=== PATIENT | female | born 1960 | race Caucasian/White ===

== ENCOUNTER 2016-12-01 01:40 | Emergency (ER) | payer MEDICARE ==
[2011-06-04 00:41] VITALS: BMI 25.0
[2016-12-01 02:14] LABS: HEMATOCRIT 47.8 % (36.0-48.0); LYMPHOCYTES 16.1 % (15-50); MCHC 35.6 g/dL (31.0-37.0); MCV 95.6 fL (80.0-100.0); MEAN PLATELET VOLUME 8.7 fL (7.4-10.4); NEUTROPHILS 80.1 % (40-80); WBC 10.9 10x3/uL (4.8-10.8)
[2016-12-01 02:16] LABS: PLATELET COUNT 428 10x3/uL (130-400)
[2016-12-01 02:26] LABS: ALBUMIN 3.5 g/dL (3.4-5.0); ALKALINE PHOSPHATASE 103 U/L (46-116); ALT (SGPT) 21 U/L (10-68); BILIRUBIN - TOTAL 0.28 mg/dL (0.2-1.3); CALC OSMOLALITY 260 mosm/kg (275-300); CALCIUM 9.1 mg/dL (8.5-10.1); CARBON DIOXIDE 31.9 mmol/L (21.0-32.0); CHLORIDE - SERUM 89 mmol/L (98-107); CREATININE - SERUM 0.7 mg/dL (0.6-1.3); GLUCOSE 100 mg/dL (74-106); PROTEIN - SERUM 7.6 g/dL (6.4-8.2); SODIUM 131 mmol/L (136-145); UREA NITROGEN 6 mg/dL (7-18); eGFR NON AFRICAN AMERICAN > 90 mL/min (90-120)
[2016-12-01 02:29] LABS: POTASSIUM - SERUM 2.7 mmol/L (3.5-5.1)
== END 2016-12-01 05:17 | disposition home or self-care (01) ==
LOC: D.ER 01:40
PROVIDERS: Emergency Medicine
DX: A08.4 Viral intestinal infection, unspecified (principal); E86.0 Dehydration; E87.6 Hypokalemia; F17.200 Nicotine dependence, unspecified, uncomplicated; M51.36 Other intervertebral disc degeneration, lumbar region; I10 Essential (primary) hypertension

== ENCOUNTER 2017-01-12 13:38 | Emergency (ER) | payer MEDICARE ==
[2011-06-04 00:41] VITALS: BMI 25.0
[2017-01-12 14:56] LABS: BASOPHILS 0.2 % (0.0-2.0); HEMATOCRIT 44.4 % (36.0-48.0); HEMOGLOBIN 15.1 g/dL (12-16); IMMATURE GRANULOCYTES 0.5 % (0-5); LYMPHOCYTES 23.2 % (15-50); MCH 34.5 pg (26.0-34.0); MCV 101.4 fL (80.0-100.0); MEAN PLATELET VOLUME 9.3 fL (7.4-10.4); MONOCYTES 6.9 % (2-11); NEUTROPHILS 64.2 % (40-80); PLATELET COUNT 380 10x3/uL (130-400); RBC 4.38 10x6/uL (4.00-5.40); RDW 13.2 % (11.5-14.5); WBC 13.7 10x3/uL (4.8-10.8)
[2017-01-12 15:10] LABS: ALBUMIN 3.4 g/dL (3.4-5.0); ALKALINE PHOSPHATASE 102 U/L (46-116); ALT (SGPT) 30 U/L (10-68); BILIRUBIN - TOTAL 0.14 mg/dL (0.2-1.3); CALC OSMOLALITY 274 mosm/kg (275-300); CALCIUM 8.7 mg/dL (8.5-10.1); CARBON DIOXIDE 28.6 mmol/L (21.0-32.0); CHLORIDE - SERUM 100 mmol/L (98-107); CREATININE - SERUM 0.7 mg/dL (0.6-1.3); GLUCOSE 125 mg/dL (74-106); POTASSIUM - SERUM 3.7 mmol/L (3.5-5.1); PROTEIN - SERUM 6.9 g/dL (6.4-8.2); SODIUM 138 mmol/L (136-145); UREA NITROGEN 7 mg/dL (7-18); eGFR NON AFRICAN AMERICAN > 90 mL/min (90-120)
== END 2017-01-12 20:35 | disposition home or self-care (01) ==
LOC: D.ER 13:38
PROVIDERS: Emergency Medicine
DX: G43.909 Migraine, unspecified, not intractable, without status migrainosus (principal); R11.0 Nausea; M51.36 Other intervertebral disc degeneration, lumbar region; I10 Essential (primary) hypertension; E87.6 Hypokalemia; F17.200 Nicotine dependence, unspecified, uncomplicated

== ENCOUNTER 2017-02-13 03:08 | Emergency (ER) | payer MEDICARE ==
[2011-06-04 00:41] VITALS: BMI 25.0
== END 2017-02-13 03:46 | disposition home or self-care (01) ==
LOC: D.ER 03:08
DX: R51 Headache (principal); F17.200 Nicotine dependence, unspecified, uncomplicated; M51.36 Other intervertebral disc degeneration, lumbar region; I10 Essential (primary) hypertension; E87.6 Hypokalemia

== ENCOUNTER 2017-06-15 23:24 | Emergency (ER) | payer MEDICARE ==
[2011-06-04 00:41] VITALS: BMI 25.0
[2017-06-16 00:11] LABS: APPEARANCE CLEAR (CLEAR); BILIRUBIN NEGATIVE (NEGATIVE); COLOR YELLOW (YELLOW); GLUCOSE NEGATIVE (NEGATIVE); KETONE NEGATIVE (NEGATIVE); LEUKOCYTE ESTERASE NEGATIVE (NEGATIVE); NITRITE NEGATIVE (NEGATIVE); PROTEIN NEGATIVE (NEGATIVE); UROBILINOGEN NORMAL (NORMAL)
== END 2017-06-16 00:23 | disposition home or self-care (01) ==
LOC: D.ER 23:24
PROVIDERS: Emergency Medicine
DX: M54.2 Cervicalgia (principal); G89.29 Other chronic pain; I10 Essential (primary) hypertension

== ENCOUNTER 2017-09-30 08:04 | Inpatient (IN) | payer MEDICARE ==
[~2017-09-30] VITALS: Ht 152.4 cm; Wt 77.3 kg
[2017-09-30 08:47] LABS: BASOPHILS 0.1 % (0-2); EOSINOPHILS 0.1 % (0-7); HEMATOCRIT 44.7 % (36.0-48.0); HEMOGLOBIN 16.2 g/dL (12-16); IMMATURE GRANULOCYTES 0.3 % (0-5); LYMPHOCYTES 12.4 % (15-50); MCH 35.5 pg (26.0-34.0); MCHC 36.2 g/dL (31.0-37.0); MEAN PLATELET VOLUME 8.8 fL (7.4-10.4); MONOCYTES 6.1 % (2-11); PLATELET COUNT 450 10x3/uL (130-400); RBC 4.56 10x6/uL (4.00-5.40); RDW 13.4 % (11.5-14.5); WBC 18.6 10x3/uL (4.8-10.8)
[2017-09-30 09:00] LABS: ALBUMIN 3.4 g/dL (3.4-5.0); ALKALINE PHOSPHATASE 157 U/L (46-116); ALT (SGPT) 11 U/L (10-68); BILIRUBIN - TOTAL 0.27 mg/dL (0.2-1.3); CALC OSMOLALITY 243 mosm/kg (275-300); CALCIUM 8.7 mg/dL (8.5-10.1); CARBON DIOXIDE 27.1 mmol/L (21.0-32.0); CREATININE - SERUM 0.8 mg/dL (0.6-1.3); GLUCOSE 156 mg/dL (74-106); PROTEIN - SERUM 7.6 g/dL (6.4-8.2); SODIUM 121 mmol/L (136-145); UREA NITROGEN 3 mg/dL (7-18); eGFR NON AFRICAN AMERICAN 78 mL/min (90-120)
[2017-09-30 09:04] LABS: CHLORIDE - SERUM 80 mmol/L (98-107); POTASSIUM - SERUM 2.7 mmol/L (3.5-5.1)
--- NOTE | 2017-09-30 11:50 | NUR ---
PT RECEIVED TO ROOM FROM ER. RR EVEN AND UNLABORED, PT IS ABLE TO AMBULATE SLOWLY TO BATHROOM. PT IS ALERT AND ORIENTED X4. WILL OBTAIN URINE SAMPLE. WILL COMPLETE HISTORY, ASSESSMENT AND MED REC. WILL CTM.
[2017-09-30] MEDS ORDERED: HYDROCODON-ACE1 EAC7 PO (11:55)
[2017-09-30] MEDS ORDERED: METOPROLOL TAR100 M1 PO (11:56)
[2017-09-30] MEDS ORDERED: XANAX2 MG PO (11:56)
[2017-09-30] MEDS ORDERED: CELEXA40 MG PO (11:57)
[2017-09-30] MEDS ORDERED: CATAPRES0.2 MG PO (11:59)
[2017-09-30] MEDS ORDERED: LISINOPRIL-HCTZ1 T13 PO (11:59)
[2017-09-30] MEDS ORDERED: DILANTIN100 MG PO ×2 (12:00→12:01)
[2017-09-30] MEDS ORDERED: ZYPREXA20 MG PO (12:01)
[2017-09-30] MEDS ORDERED: NEURONTIN800 MG PO (12:02)
[2017-09-30] MEDS ORDERED: PEPCID20 MG PO (12:02)
[2017-09-30] MEDS ORDERED: NORVASC5 MG PO (12:03)
[2017-09-30] MEDS ORDERED: AMBIEN10 MG PO (12:03)
[2017-09-30 12:15] VITALS: BP 155/101; Ht 152.4 cm; Wt 77.3 kg
--- NOTE | 2017-09-30 13:30 | NUR ---
PT VOMITED 300 MLS OF FRITZ COLORED EMESIS. WILL GIVE PRN ZOFRAN AND CTM.
[2017-09-30 14:06] LABS: APPEARANCE CLEAR (CLEAR); BILIRUBIN NEGATIVE (NEGATIVE); COLOR YELLOW (YELLOW); GLUCOSE NEGATIVE (NEGATIVE); KETONE NEGATIVE (NEGATIVE); NITRITE NEGATIVE (NEGATIVE); PROTEIN TRACE mg/dL (NEGATIVE); SPECIFIC GRAVITY 1.005 (1.005-1.020); UROBILINOGEN NORMAL (NORMAL)
--- NOTE | 2017-09-30 18:50 | NUR ---
PTS POTASSIUM HAS BEEN LOW SINCE ADMISSION TO FLOOR. PT IS ON E PROTOCOL. WILL GIVE 20 MEQ TO START PROTOCOL AND PASS ALONG IN SHIFT REPORT. RR EVEN AND UNLABORED, PT DENIES NEEDS AT THIS TIME. REPORTS A DECREASE IN N/V SINCE ZOFRAN DRIP STARTED. FAMILY AT BEDSIDE, WILL GIVE SHIFT REPORT ON PT CONDITION FOR THE DAY.
--- NOTE | 2017-09-30 19:09 | NUR ---
RECEIVED REPORT, WILL ASSUME CARE OF PT, PT DENIES ANY NEEDS AT THIS TIME, WILL CONTINUE PLAN OF CARE
[2017-09-30 20:13] LABS: CALCIUM 8.6 mg/dL (8.5-10.1); CARBON DIOXIDE 29.2 mmol/L (21.0-32.0); CHLORIDE - SERUM 93 mmol/L (98-107); CREATININE - SERUM 0.6 mg/dL (0.6-1.3); SODIUM 129 mmol/L (136-145); eGFR NON AFRICAN AMERICAN > 90 mL/min (90-120)
[2017-09-30 20:14] LABS: CALC OSMOLALITY 255 mosm/kg (275-300); GLUCOSE 93 mg/dL (74-106); POTASSIUM - SERUM 3.9 mmol/L (3.5-5.1); UREA NITROGEN 4 mg/dL (7-18)
[2017-09-30 21:22] VITALS: BP 154/87
--- NOTE | 2017-10-01 | NUR ---
PT RESTING WELL, NO CHANGES NOTED. ASSESSMENTS UNCHANGED. CALL LIGHT WITHIN REACH. WILL MONITOR.
[2017-10-01 01:32] VITALS: BP 142/87
[2017-10-01 04:27] VITALS: BP 134/95
[2017-10-01 06:43] LABS: BASOPHILS 0.1 % (0-2); EOSINOPHILS 0.6 % (0-7); HEMATOCRIT 39.9 % (36.0-48.0); HEMOGLOBIN 13.7 g/dL (12-16); IMMATURE GRANULOCYTES 0.2 % (0-5); LYMPHOCYTES 29.6 % (15-50); MCHC 34.3 g/dL (31.0-37.0); MEAN PLATELET VOLUME 8.8 fL (7.4-10.4); MONOCYTES 8.8 % (2-11); NEUTROPHILS 60.7 % (40-80); RBC 3.91 10x6/uL (4.00-5.40)
[2017-10-01 06:47] LABS: WBC 8.4 10x3/uL (4.8-10.8)
[2017-10-01 06:48] LABS: PLATELET COUNT 353 10x3/uL (130-400)
[2017-10-01 07:05] LABS: CALC OSMOLALITY 264 mosm/kg (275-300); CALCIUM 8.4 mg/dL (8.5-10.1); CARBON DIOXIDE 26.6 mmol/L (21.0-32.0); CHLORIDE - SERUM 99 mmol/L (98-107); CREATININE - SERUM 0.6 mg/dL (0.6-1.3); GLUCOSE 101 mg/dL (74-106); MAGNESIUM - SERUM 1.8 mg/dL (1.8-2.4); PHOSPHOROUS 3.5 mg/dL (2.5-4.9); POTASSIUM - SERUM 4.4 mmol/L (3.5-5.1); SODIUM 134 mmol/L (136-145); UREA NITROGEN 5 mg/dL (7-18); eGFR NON AFRICAN AMERICAN > 90 mL/min (90-120)
--- NOTE | 2017-10-01 07:15 | NUR ---
REPORT RECEIVED. RR EVEN AND UNLABORED. PT DENIES NEEDS AT THIS TIME. PT REPORTS FEELING "MUCH BETTER TODAY." ZOFRAN DRIP AT 4.7 AND NS WITH 40MEQ OF K AT 125 ML/HR. PTS K+ IS AT 4.4 CURRENTLY. WILL LET PHYSICIAN KNOW ABOUT K+ TRENDING UP. WILL CTM PT CONDITION.
--- NOTE | 2017-10-01 09:01 | NUR ---
SPOKE TO DR. CASTILLO REGARDING PT REQUEST PAIN MEDICINE. GAVE TELEPHONE ORDER TO CONTINUE NORCO 5-325 Q4 FROM HOME MED REC. ALSO ADDRESSED PTS POTASSIUM TRENDING UP. GAVE ORDER TO GIVE 20MEQ OF K+ IN 1000MLS NS AND D/C THE 40MEQ IN 1000 MLS NS AND DROP RATE TO 75MLS/HR. WILL GIVE AND CTM.
[2017-10-01 09:06] VITALS: BP 156/86
--- NOTE | 2017-10-01 11:13 | NUR ---
PT WAS ASLEEP, EASY TO AROUSE. REASSED PTS PAIN TO WHICH SHE SAID A 05/15. I ASKED IF HER THE NORCO HELPED TO WHICH SHE SAID "I JUST TOOK IT." I EXPLAINED TO HER THAT IT HAD BEEN LONG ENOUGH FOR THE MEDICAITON TO HAVE TAKEN EFFECT. AFTER I SAID THIS SHE REPORTS THAT HER PAIN HAS DECREAED. WILL CTM.
[2017-10-01 12:00] VITALS: BP 115/78
[2017-10-01] MEDS ORDERED: ZOFRAN4 MG PO (15:02)
[2017-10-01 16:00] VITALS: BP 89/55
--- NOTE | 2017-10-01 16:50 | NUR ---
PTS BP WAS LOW AT 1600 PER RELINER REPORT AND DOCUMENTATION. RECHECKED PTS BP, NOW 140/72. PT IS ALERT AND ORIENTED, RELINER SAID THAT WHEN SHE CHECKED HER BP AT 1600, SHE WAS SLEEPING. SPOKE TO CECILIA ERVIN RENAL POLYGRAPH TECHNICIAN ABOUT PT CONDITION AND DISCHARGE PER DR. CASTILLO. GAVE TELEHPONE ORDER TO D/C PT LONG HER LABS HAD IMPROVED. REPORTED LABS TO POLYGRAPH TECHNICIAN, GAVE ORDER TO D/C. WILL TELL MANAGER ASSET ABOUT D/C AND COMPLETE D/C AFTER PAPERWORK IS COMPLETED.
--- NOTE | 2017-10-01 17:45 | NUR ---
PT DISCHARGED. D/C INSTRUCTIONS PROVIDED TO PT, VERBALIZED UNDERSTANDING. TELE REMOVED AND RETURNED TO TILE AND MARBLE INSTALLER. IV CATHETER REMOVED WITH TIP INTACT, DRESSING APPLIED. PAPERWORK SIGNED. PT DENIES FURTHER QUESTIONS AND NEEDS. WILL TAKE PT OUT VIA WHEELCHAIR. WILL BE GOING HOME WITH CLOSE FRIEND IN PERSONAL VEHICHLE.
== END 2017-10-01 18:04 | disposition home or self-care (01) | DRG 392 ==
LOC: D.ER 08:04 → D.M2 09:57
PROVIDERS: Family Medicine; Internal Medicine Nephrology; ADMIT Family Medicine Adult Medicine
DX: K52.9 Noninfective gastroenteritis and colitis, unspecified (principal); E87.1 Hypo-osmolality and hyponatremia; E87.6 Hypokalemia; I10 Essential (primary) hypertension; F41.9 Anxiety disorder, unspecified; F31.9 Bipolar disorder, unspecified; Z72.0 Tobacco use

== ENCOUNTER 2019-02-05 12:26 | Observation (INO) | payer MEDICARE ==
[~2019-02-05] VITALS: Ht 152.4 cm; Wt 81.5 kg
--- NOTE | ~2019-02-05 | CN ---
PATIENT NAME:ADE GAUTAM MEDICAL RECORD: [id number] : 62 LOCATION:D. D.2111 ADMIT DATE: 02/05/19 ACCOUNT: [id number] CONSULTING PHYSICIAN: ROMAINE JOYNER MD REFERRING PHYSICIAN: SHELTON CABALLERO MD DATE OF CONSULTATION: 02/06/2019 Cardiology Consultation ADMITTING DIAGNOSES: 1. Angina. 2. Abnormal electrocardiogram. 3. Hypertension. 4. Tachycardia. 5. History of supraventricular tachycardia, status post ablation. HISTORY OF PRESENT ILLNESS: Mrs. Gautam presents with 3-day history of chest discomfort. Her EKG has ST-T changes compatible with ischemia. She has continued to have the episodes of chest discomfort. She does have out of control hypertension. She is supposed to be on multiple agents including Norvasc and clonidine. However, she is only taking Norvasc on an intermittent basis. She is quite tachycardic and has a history of SVT, has had no recurrent SVT, but has had palpitations. She is not on a beta leann. PHYSICAL EXAMINATION: GENERAL APPEARANCE: Well-nourished, well-developed, appears stated age. Level of distress, comfortable. PSYCHIATRIC: Mental status, alert, normal affect. Orientation, oriented to time, place and person. EYES: Lids and conjunctiva, noninjected. No discharge, no pallor. ENT: Lips, teeth, gums, normal dentition. Oropharynx, no cyanosis, no pallor. NECK: Carotid arteries, bilateral normal upstroke, no bruits, no thrills. JUGULAR VEINS: No jugular venous pressure or distention. CERVICAL LYMPH NODES: Nontender, nonenlarged. THYROID: Not enlarged. Nontender. No nodules. LUNGS: Respiratory effort, unlabored. CHEST: Normal curvature. No thoracic deformity. No chest wall tenderness. Percussion, resonant. Auscultation, clear. No wheezes, no rales, no rhonchi. CARDIOVASCULAR: Precordial exam, nondisplaced. No heaves or pericardial thrills. Rate and rhythm, regular. Heart sounds, normal S1, normal S2. No S3, no gallop, no rub. Systolic murmur, not heard. Diastolic murmur, not heard. EXTREMITIES: No cyanosis, no edema. Peripheral pulses, full and equal in all extremities, except as noted. No bruits appreciated. ABDOMEN: Soft, nondistended. Normal aorta. No bruit. Nontender. No masses. Liver, nontender, no hepatomegaly. Spleen, nontender, no splenomegaly. MUSCULOSKELETAL: No joint tenderness. No joint swelling. No erythema. NEUROLOGICAL: Normal gait, normal strength, normal tone. SKIN: Warm and dry. IMPRESSION: Out of control hypertension with tachycardia. We will start Lopressor 100 mg b.i.d. We will get an echocardiogram and due to the chest pain with abnormal ECG compatible with ischemia, we will proceed with coronary angiography. Further care depends upon findings of the angiography. TRANSINT:[id number] Voice Confirmation ID: [id number] DOCUMENT ID: [id number] CONSULT REPORT [id number] ADE GAUTAM JEFFREY MD CC: [id number] DICTATION DATE: 02/06/19826 CONCRETE STONE FINISHING SUPERVISOR: 02/06/[address] [facility] [address] [place] [address]
--- NOTE | ~2019-02-05 | OP ---
PATIENT NAME: ADE GAUTAM MEDICAL RECORD: [id number] :62 LOCATION:D.M2 D.2111 ADMISSION DATE:02/05/19 SURGEON: ROMAINE JOYNER MD DATE OF OPERATION: 02/06/2019 DATE OF SERVICE: 02/06/2019 PROCEDURES: 1. Left heart catheterization. 2. Selective coronary angiography. 3. Left ventriculogram. 4. Bilateral selective renal angiography. INDICATION: Angina, coronary artery disease, out of control hypertension. PROCEDURE IN DETAIL: After informed consent was obtained and after a detailed description of risks, benefits as well as alternative therapies, the patient elected to proceed with angiogram and heart catheterization. The right femoral area was prepped and draped in normal sterile fashion. Right femoral artery was cannulated via modified Seldinger technique with placement of 5-Vietnamese sheath. All catheters exchanged through this sheath. FINDINGS: Left ventriculogram was performed in standard 30-degree JENNINGS view, reveals good cardiac wall motion throughout all segments. Overall ejection fraction estimated at 60%. SELECTIVE CORONARY ANGIOGRAPHY: The left main, left anterior descending, left circumflex, right coronary artery are all smooth-walled vessels with no angiographic evidence of coronary artery disease. There was subselection of each renal artery. RIGHT RENAL ARTERY: The right renal artery is solitary artery off the aorta with no significant pressure damping at the ostium. No significant renal artery stenosis. LEFT RENAL ARTERY: The left renal artery is solitary artery off the aorta with no significant pressure damping. No significant renal artery stenosis. OVERALL IMPRESSION: No coronary artery disease is present. Normal left ventricular function. No renal artery disease is present. Center medical management on treatment of essential hypertension. TRANSINT:[id number] Voice Confirmation ID: [id number] DOCUMENT ID: [id number] ROMAINE JOYNER MD CC: SHELTON CABALLERO [id number] DICTATION DATE: 02/06/19 1106 LAUNDERER HAND: 02/06/19 1215 ADM IN [facility] [address] [place] [address]
--- NOTE | ~2019-02-05 | HEMODYNAMI ---
PATIENT:ADE GAUTAM MEDICAL RECORD: [id number] : 62 [facility] ADMISSION DATE: 02/05/19 Generatedon:02/06/201911:07 Patient name: ADE GAUTAM Patient #: [id number] SSN: : 1960 Date of study: 02/06/2019 Page: Of Hemodynamic Procedure Report Patient Data Patient Demographics Procedure consent was obtained First Name: ADE Gender: Female Last Name: DAIN : 1960 [facility] Initial: MARK Age: 58 year(s) Patient #: [id number] Race: Unknown Additional ID: [id number] Contact details [address]: [address] [place] [address] [address] State: [place] City: [place] Zip code: [address] Past Medical History Allergies Allergen Reaction Date Comments Reported Sulfa drugs 02/06/2019 Other allergy 02/06/2019 lamictal, maxalt, imitrex Admission Admission Data Admission Date: 02/05/2019 Admission Time: 20:18 Room #: D.2111 Procedure Procedure Types Cath Procedure Diagnostic Procedure [facility] w/Coronaries Peripheral Cath Diagnostic Procedure Program Services Assistant Peripheral Procedures Renal Arteriogram Procedure Description Procedure Date Procedure Date: 02/06/2019 Procedure Start Time: 10:57 Procedure End Time: 11:06 Procedure Staff Name Function Sy Nichole MD Performing Physician Tamara Enriquez RT Monitor Ana Paula Martell RN Nurse Jason Zhou RT Scrub Procedure Data Cath Procedure Fluoroscopy Diagnostic fluoroscopy Total fluoroscopy Time: 1.1 time: 1.1 min min Diagnostic fluoroscopy Total fluoroscopy dose: 112 dose: 112 mGy mGy Contrast Material Contrast Material Type Amount (ml) Isovue 300 57 Entry Location Entry Primary Successful Side Size Upsize Upsize Entry Closure Succes sful Closure Location (Fr) 1 (Fr) 2 (Fr) Remarks Device Remarks Femoral Right 5 Fr Exoseal artery Estimated blood loss: 5 ml Diagnostic catheters Device Type Used For End Catheter Placement MULTIPACK Pigtail 5 Fr LV Angiography catheter MULTIPACK JL 4.0 5Fr Left Coronary catheter Angiography MULTIPACK 3DRC 5Fr Right Coronary catheter Angiography MULTIPACK 3DRC 5Fr Renal catheter arteriography without flush -selective Procedure Complications No complications Procedure Medications Medication Administration Route Dosage Oxygen etCO2 Nasal cannula 2 l/min Lidocaine 2% added to field 20 Heparin Flush Bag added to field 2 bags (1000units/500ml NS) 0.9% NaCl I.V. 100 ml/hr Versed I.V. 2 mg Fentanyl I.V. 100 mcg Versed I.V. 2 mg Fentanyl I.V. 100 mcg Versed I.V. 1 mg Hemodynamics Rest Heart Rate: 77 (bpm) Snapshots Pre Cath Intra NCS Post Cath Vital Signs Time Heart Resp SPO2 etCO2 NIBP (mmHg) Rhythm Pain Sedation Rate (ipm) (%) (mmHg) Status Level (bpm) 10:48:04 79 30 99 0 165/105(137) NSR 0 (11) 10(A) , No pain 10:52:36 77 20 97 0 153/103(128) NSR 0 (11) 10(A) , No pain 10:57:07 75 14 97 0 137/99(118) NSR 0 (11) 9(A) , No pain 11:01:29 73 14 97 0 153/93(117) NSR 0 (11) 10(A) , No pain 11:05:45 78 14 94 0 128/90(106) NSR 0 (11) 10(A) , No pain Medications Time Medication Route Dose Verified Delivered Reason Notes Eff ectiveness by by 10:26:18 Oxygen etCO2 2 Sy Goss used for Nasal l/min Dionisio Martell RN procedure cannula 10:26:26 Lidocaine 2% added 20ml Sy Dan for local to vial Dionisio Nichole MD anesthetic field 10:26:34 Heparin Flush added 2 Sy Sy used for Bag to bags Dionisio Nichole MD procedure (1000units/500ml field NS) 10:26:50 0.9% NaCl I.V. 100 Sy Goss Per ml/hr Dionisio Martell RN physician 10:52:57 Versed I.V. 2 mg Sy Meyersie for Dionisio Martell RN sedation 10:53:03 Fentanyl I.V. 100 Sy Meyersrizwana Martell RN sedation 10:57:07 Versed I.V. 2 mg Sy Martell RN sedation 10:57:12 Fentanyl I.V. 100 Sy Martell RN sedation 11:03:05 Versed I.V. 1 mg Sy Martell RN sedation Procedure Log Time Note 10:11:52 Ana Paula Martell RN sent for patient. Start room use. 10:11:53 Time tracking: Regular hours (M-F 7:00 - 5:00) 10:11:56 Plan of Care:Hemodynamics will remain stable., Cardiac rhythm will remain stable., Comfort level will be maintained., Respiratory function will remain adequate., Patient/ family verbilizes understanding of procedure., Procedure tolerated without complication., Recovers from procedure without complications.. 10:26:18 Oxygen 2 l/min etCO2 Nasal cannula was administered by Ana Paula Martell RN; used for procedure; 10:26:26 Lidocaine 2% 20ml vial added to field was administered by Sy Nichole MD; for local anesthetic; 10:26:34 Heparin Flush Bag (1000units/500ml NS) 2 bags added to field was administered by Sy Nichole MD; used for procedure; 10:26:50 0.9% NaCl 100 ml/hr I.V. was administered by Ana Paula Martell RN; Per physician; 10:31:59 Patient received from PCU to CCL 3 Alert and oriented. Tansferred to table in Supine position. 10:32:00 Warm blankets applied, and hubert hugger turned on for patient comfort. 10:32:01 Correct patient and procedure confirmed by team. 10:32:02 Signed procedure consent form obtained from patient. 10:32:03 ECG and BP/O2 sat monitors applied to patient. 10:32:05 Full Disclosure recording started 10:39:21 Rhythm: sinus rhythm 10:39:45 H&P Date Dictated: 02/06/2019 Within 30 days and on chart.. 10:39:47 Pre-procedure instructions explained to patient. 10:39:47 Pre-op teaching completed and patient verbalized understanding. 10:39:51 Family in patients room. 10:39:52 Patient NPO since Midnight. 10:40:40 Patient allergic to Sulfa drugs 10:41:07 Patient allergic to Other allergylamictal, maxalt, imitrex 10:41:23 Is the patient allergic to Iodine/contrast media? No. 10:41:26 Is patient on blood thinner?No 10:46:36 Vital chart was started 10:47:26 Patient diabetic? No. 10:47:28 Previous problem with sedation/anesthesia? No ? 10:47:30 Snore? Yes 10:47:31 Sleep apnea? No 10:47:32 Deviated septum? No 10:47:34 Opens mouth fully? Yes 10:47:34 Sticks out tongue? Yes 10:47:38 Airway obstruction? Yes COPD 10:47:41 Dentures? No ? 10:47:44 Pre procedure: right dorsailis pedis pulse 2+ Normal; easily identifiable; not easily obliterated 10:47:50 Pre procedure: right radial pulse 0-Absent 10:47:53 Patient pain scale 0/10 ?. 10:48:18 IV Left upper arm D/C'd due to infiltration. 10:48:28 IV started by Ana Paula Martell RN inleft forearm with a 20 gauge IV catheter with 0.9% NaCl at KVO. 10:48:42 Lab results completed and on chart. 10:48:44 Right groin area was prepped with chlora-prep and draped in sterile fashion 10:48:45 Alarms reviewed by R. N. 10:48:45 Sharps counted by scrub and verified by R.N. 10:48:48 Use device set Femoral Dx 10:48:49 ACIST Syringe (18775) opened to sterile field. 10:48:50 Bag Decanter (2002) opened to sterile field. 10:48:51 Medline Cath Pack ([id number]) opened to sterile field. 10:48:52 DIAGNOSTIC WIRE .035 260cm J wire (171014) opened to sterile field. 10:48:53 ACIST Hand Control (29915) opened to sterile field. 10:48:53 ACIST Manifold (24302) opened to sterile field. 10:48:54 DIAGNOSTIC Multipack 5Fr catheter set (HZ4499) opened to sterile field. 10:48:54 Tegaderm 4 x 4 (1626W) opened to sterile field. 10:48:56 SHEATH 5FR [place] ([id number]) opened to sterile field. 10:51:55 Final Timeout: patient, procedure, and site verified with staff and physician. All members of the team are in agreement. 10:51:57 Right groin site verified by team. 10:52:00 Maximum allowable Isovue 300 dose 300ml. Physician notified. (300ml for normal creatinines. For patients with creatinine of 1.7 or higher multiply weight(kg) x 5 divided by creatinine.) 10:52:04 Fire Safety Assessment: A--An alcohol-based skin anteseptic being used preoperatively., C--Open oxygen or nitrous oxide is being used., D--An ESU, laser, or fiber-optic light is being used. 10:52:06 Physical assessment completed. ASA score P 2 - A patient with mild systemic disease as per Sy Nichole MD. 10:52:10 Sedation plan: IV Moderate Sedation Medication:Versed, Fentanyl 10:52:14 Baseline sample Acquired. 10::57 Versed 2 mg I.V. was administered by Ana Paula Martell RN; for sedation; 10:53:03 Fentanyl 100 mcg I.V. was administered by Ana Paula Martell RN; for sedation; 10:53:23 Procedure type changed to Cath procedure, Diagnostic procedure, LHC, LHC w/Coronaries, Peripheral Cath Diagnostic Procedure, Program Services Assistant Peripheral Procedures, Renal Arteriogram 10:56:51 Zero performed for pressure channel P1 10:57:01 Procedure started. 10:57:04 Local anesthetic to right femoral artery with Lidocaine 2% by Sy Nichole MD.INITIAL ACCESS ONLY 10:57:07 Versed 2 mg I.V. was administered by Ana Paula Martell RN; for sedation; 10:57:12 Fentanyl 100 mcg I.V. was administered by Ana Paula Martell RN; for sedation; 10:57:31 A 5 Fr sheath was inserted into the Right Femoral artery 10:59:49 A MULTIPACK Pigtail 5 Fr catheter was advanced over the wire and used for LV Angiography. 11:00:22 LV gram done using JENNINGS 11:00:33 EF : 60 % 11:00:45 Injector settings: Ml/sec: 10, Volume: 20, 11:00:47 Catheter removed. 11:01:25 A MULTIPACK JL 4.0 5Fr catheter was advanced over the wire and used for Left Coronary Angiography. 11:01:54 Catheter removed. 11:02:11 A MULTIPACK 3DRC 5Fr catheter was advanced over the wire and used for Right Coronary Angiography. 11:02:40 A MULTIPACK 3DRC 5Fr catheter was advanced over the wire and used for Renal arteriography without flush -selective. 11:02:50 Catheter removed. 11:03:05 Versed 1 mg I.V. was administered by Ana Paula Martell RN; for sedation; 11:03:06 Sheath removed intact; hemostasis achieved with Exoseal to the Right Femoral artery. 11:03:08 Procedure ended.(Physican Out) 11:03:22 Fluoroscopy time 01.10 minutes. 11:03:27 Fluoroscopy dose: 112 mGy 11:03:27 Flurop Dose total: 112 11:03:31 Contrast amount:Isovue 300 57ml. 11:03:32 Sharps counted by scrub and verified by R.N. 11:03:52 Insertion/operative site no bleeding no hematoma. 11:03:55 Post-op/insertion site Right Femoral artery dressed using a 4 x 4 and Tegaderm. 11:03:58 Post right femoral artery:stable, clean and dry 11:04:00 Post Procedure Pulses reassessed and unchanged 11:04:04 Post-procedure physical assessment completed. ASA score P 2 - A patient with mild systemic disease as per Sy Nichole MD. 11:04:09 Post procedure rhythm: unchanged. 11:04:16 Estimated blood loss: 5 ml 11:04:17 Post procedure instruction explained to patient.Patient verbalizes understanding. 11:04:18 Patient needs reinforcement of post procedure teaching. 11:04:24 Procedure Complication : No complications 11:04:27 See physician's report for complete and final results. 11:04:35 EXOSEAL 5Fr (EX500) opened to sterile field. 11:04:48 Procedure and supply charges have been captured, reviewed, submitted and are correct. 11:06:23 Vital chart was stopped 11:06:27 Report given to PCU. 11:06:31 Patient transfered to PCU with Bed. 11:06:39 Procedure ended. 11:06:39 Full Disclosure recording stopped 11:06:44 End room use (Document Last) Device Usage Item Name Manufacture Quantity Catalog Hospital Part Current Minimal L ot# / Number Charge Number Stock Stock Serial# Code ACIST Acist 1 98570 [id number] 992259 [id number] 20 Syringe Medical (45708) Systems Inc Bag Microtek 1 2001S 548723 77225 978490 5 Decanter Medical Inc. () Medline Medline 1 [id number] 201194 95806 861469 5 Cath Pack ([id number]) DIAGNOSTIC [facility] 1 366225 571713 153036 001089 30 WIRE .035 260cm J wire (436154) ACIST Hand Acist 1 44401 817040 059474 900716 5 Control Medical (05834) Systems Inc ACIST Acist 1 68627 274344 838696 250670 5 Manifold Medical (31935) Systems Inc DIAGNOSTIC Cardinal 1 [id number] 923305 65803 406639 30 Multipack Health 5Fr catheter set (XD7004) Tegaderm 4 3M 1 1626W 324086 270419 114383 5 x 4 (1626W) SHEATH 5FR Terumo 1 NZL725 874046 968233 799965 5 [place] (QQC865) MULTIPACK Cardinal 1 713975 5 Pigtail 5 Health Fr catheter MULTIPACK Cardinal 1 649479 5 JL 4.0 5Fr Health catheter MULTIPACK Cardinal 1 379325 5 3DRC 5Fr Health catheter EXOSEAL 5Fr Cardinal 1 EX500 651055 324797 637627 10 (EX500) Health Signature Audit [place] Stage Time Signature Unsigned Intra-Procedure 02/06/2019 Tamara 11:06:55 AM Counts RT(R) Signatures Monitor : Tamara Signature : Counts RT Date : Time : [place] [id number] [place] [address]
--- NOTE | ~2019-02-05 | EC ---
PATIENT:ADE GAUTAM DATE OF SERVICE: 02/05/19 SEX: F MEDICAL RECORD: [id number] DATE OF : 62 LOCATION:D.M2 D.211 AGE OF PATIENT: 58 ADMISSION DATE: 02/05/19 REFERRING PHYSICIAN: INTERPRETING PHYSICIAN: ROMAINE NICHOLE MD ECHOCARDIOGRAM REPORT ECHO CHARGES 4 ECHO COMPLETE Date: 02/06/19 CLINICAL DIAGNOSIS: HTN ECHOCARDIOGRAPHIC MEASUREMENTS (adult normal given) AC root (d.<3.7cm) 2.6 cm LV Septum d (<1.2 cm> 1.8 cm Valve Excursion 1.5 cm LV Septum (systole) 1.9 cm Left Atria (s.<4.0cm> 3.1 cm LVPW d(<1.2cm) 0.7 cm RV (d.<2.3cm) 2.6 cm LVPW (sytole) 1.4 cm LV diastole(<5.6CM) 4.6 cm MV E-F(>70mm/sec) cm LV systole 3.1 cm LVOT Diameter 1.7 cm MV exc.(>10mm) cm Est.ejection fraction (50-75%) % DOPPLER: LVIT cm/sec A 53 cm/sec E 56 cm/sec LA cm/sec RVSP 44.0 mmHg LVOT 94 cm/sec AOP1/2T m/s Asc. Ao 121 cm/sec RVOT 71 cm/sec RA cm/sec PA 68 cm/sec AV Gradient Peak 5.8 mmHg AV Mean 2.9 mmHg AV Area 1.5 cm MV Gradient Peak 3.8 mmHg MV Mean 2.1 mmHg MV Area cm COMMENTS: Brass Sorter: Lloyd CABRERA Pigment Grinder: 1 Dr. Nichole TAPE# PACS Pericardial Effusion N DATE OF SERVICE: 02/07/2019 ECHOCARDIOGRAM DATE OF SERVICE: 02/07/2019 FINDINGS: 1. Left ventricular chamber size is within normal limits. Left ventricular systolic function is normal. Overall ejection fraction estimated at 55%. 2. Left atrium, right atrium and right ventricular chamber sizes are within ECHOCARDIOGRAM REPORT [id number] ADE GAUTAM normal limits. 3. Valvular structures have normal structure and motion. 4. Doppler interrogation reveals no significant valvular insufficiency or stenosis. 5. No evidence of pericardial effusion or left ventricular thrombus. TRANSINT:[id number] Voice Confirmation ID: [id number] DOCUMENT ID: [id number] ROMAINE NICHOLE MD CC: [id number] DICTATION DATE: 02/07/19 1244 RETAIL WAREHOUSE SUPERVISOR: 02/07/19 1329 ADM IN [place] [address] [place] [address]
[~2019-02-05 12:26] MED LIST: AMBIEN10 MG PO; CATAPRES0.2 MG PO; CELEXA40 MG PO; DILANTIN100 MG PO; HYDROCODON-ACE1 EAC7 PO; LISINOPRIL-HCTZ1 T13 PO; METOPROLOL TAR100 M1 PO; NEURONTIN800 MG PO; NORVASC5 MG PO; PEPCID20 MG PO; XANAX2 MG PO; ZOFRAN4 MG PO; ZYPREXA20 MG PO
[2019-02-05 13:20] LABS: BASOPHILS 0.1 % (0-2); EOSINOPHILS 2.6 % (0-7); HEMATOCRIT 39.7 % (36.0-48.0); HEMOGLOBIN 13.5 g/dL (12-16); IMMATURE GRANULOCYTES 0.3 % (0-5); LYMPHOCYTES 21.3 % (15-50); MCH 34.5 pg (26.0-34.0); MCV 101.5 fL (80.0-100.0); MEAN PLATELET VOLUME 8.7 fL (7.4-10.4); NEUTROPHILS 69.7 % (40-80); RBC 3.91 10x6/uL (4.00-5.40); RDW 15.5 % (11.5-14.5); WBC 9.6 10x3/uL (4.8-10.8)
[2019-02-05 13:29] LABS: PLATELET COUNT 439 10x3/uL (130-400)
[2019-02-05 13:34] VITALS: BP 160/90
[2019-02-05 13:36] LABS: ALKALINE PHOSPHATASE 158 U/L (46-116); ALT (SGPT) 16 U/L (10-68); BILIRUBIN - TOTAL 0.05 mg/dL (0.2-1.3); CALC OSMOLALITY 280 mosm/kg (275-300); CALCIUM 7.7 mg/dL (8.5-10.1); CHLORIDE - SERUM 104 mmol/L (98-107); CREATININE - SERUM 0.7 mg/dL (0.6-1.3); GLUCOSE 97 mg/dL (74-106); POTASSIUM - SERUM 3.3 mmol/L (3.5-5.1); PROTEIN - SERUM 6.8 g/dL (6.4-8.2); SODIUM 142 mmol/L (136-145); UREA NITROGEN 6 mg/dL (7-18); eGFR NON AFRICAN AMERICAN > 90 mL/min (90-120)
--- NOTE | 2019-02-05 13:36 | NUR ---
PT RATES CP 5/10 AFTER 1ST NITRO. 2ND NITRO ADMINISTERED. BP 160/90
[2019-02-05 13:37] LABS: APTT 29.1 SECONDS (22.8-39.4); INR 1.14 (0.85-1.17); PROTIME 14.1 SECONDS (11.6-15.0)
--- NOTE | 2019-02-05 13:43 | NUR ---
PT RATES PAIN 5/10 AFTER 2ND NITRO. BP 174/104. 3RD NITRO GIVEN. PT ALSO C/O HEADACHE WITH ONSET AFTER NITROGLYCERIN ADMINISTRATION.
--- NOTE | 2019-02-05 13:47 | NUR ---
BP 152/97 AFTER 3RD NITROGLYCERIN. PT CONTINUES TO RATE PAIN 5/10.
[2019-02-05 13:55] LABS: CKMB 0.6 U/L (0.0-3.6); CREATINE KINASE 45 UL (21-215); MAGNESIUM - SERUM 1.8 mg/dL (1.8-2.4); TROPONIN-I < 0.017 ng/mL (0.000-0.060)
[2019-02-05 15:08] VITALS: BP 175/106
[2019-02-05] MEDS ORDERED: PHENYTEK300 MG PO (15:16)
[2019-02-05 17:12] VITALS: BP 163/92
[2019-02-05 18:22] LABS: CKMB 0.3 U/L (0.0-3.6); CREATINE KINASE 75 UL (21-215); TROPONIN-I < 0.017 ng/mL (0.000-0.060)
[2019-02-05 18:34] LABS: APPEARANCE CLEAR (CLEAR); BILIRUBIN NEGATIVE (NEGATIVE); COLOR YELLOW (YELLOW); GLUCOSE NEGATIVE (NEGATIVE); KETONE NEGATIVE (NEGATIVE); NITRITE NEGATIVE (NEGATIVE); PROTEIN NEGATIVE (NEGATIVE); UROBILINOGEN NORMAL (NORMAL)
[2019-02-05 20:00] VITALS: BP 140/93
[2019-02-05 21:56] VITALS: BP 140/93; BMI 35.3
--- NOTE | 2019-02-05 23:03 | NUR ---
PT RECEIVED TO UNIT AT 2140 FROM ED. PT ALERT AND ORIENTED. SIGNICANT OTHER AT BEDSIDE IN CHAIR. NO COMPLAINTS OF PAIN AT THIS TIME. ASSESSMENT, HX, AND MEDICATION REC COMPLETED. COMPLAINS OF NAUSEA WITH PRN ZOFRAN GIVEN PER JAN. PT REQUEST DIET LEMON-AKHIOK SODA AND WAS PROVIDED. NO OTHER NEEDS OR CONCERNS MADE KNOWN. CALL LIGHT IN REACH. WILL CONTNUE TO OBSERVE.
[2019-02-06] VITALS: BP 150/105
--- NOTE | 2019-02-06 00:19 | NUR ---
PT WITH EYES OPEN WATCHING TV WITH FRIEND IN CHAIR AT BEDSIDE. COMPLAINS OF GENERALIZED PAIN 6/10 WITH PRN MORPHINE GIVEN PER JAN. NO OTHER NEEDS MADE KNOWN. CALL LIGHT IN REACH. WILL CONTINUE TO OBSERVE.
--- NOTE | 2019-02-06 02:19 | NUR ---
I have reviewed this patient and I concur with the Shift Assessment completed by the Licensed Practical Nurse today this shift. PT IS ST [address]
[2019-02-06 04:00] VITALS: BP 144/103
--- NOTE | 2019-02-06 04:29 | NUR ---
PT WITH EYES CLOSED AND CHEST RISING. NO S/S OF DISTRESS. CALL LIGHT IN REACH. FRIEND IN CHAIR AT BEDSIDE.
[2019-02-06 05:38] LABS: BASOPHILS 0.1 % (0-2); EOSINOPHILS 3.3 % (0-7); HEMATOCRIT 36.7 % (36.0-48.0); HEMOGLOBIN 12.3 g/dL (12-16); IMMATURE GRANULOCYTES 0.3 % (0-5); LYMPHOCYTES 20.4 % (15-50); MCHC 33.5 g/dL (31.0-37.0); MCV 101.4 fL (80.0-100.0); MEAN PLATELET VOLUME 8.7 fL (7.4-10.4); MONOCYTES 5.5 % (2-11); NEUTROPHILS 70.4 % (40-80); PLATELET COUNT 425 10x3/uL (130-400); RBC 3.62 10x6/uL (4.00-5.40); RDW 15.4 % (11.5-14.5); WBC 7.6 10x3/uL (4.8-10.8)
[2019-02-06 06:12] LABS: ALBUMIN 2.8 g/dL (3.4-5.0); ALKALINE PHOSPHATASE 154 U/L (46-116); ALT (SGPT) 13 U/L (10-68); BILIRUBIN - TOTAL 0.09 mg/dL (0.2-1.3); CALC OSMOLALITY 275 mosm/kg (275-300); CALCIUM 7.5 mg/dL (8.5-10.1); CARBON DIOXIDE 26.1 mmol/L (21.0-32.0); CHLORIDE - SERUM 103 mmol/L (98-107); CREATININE - SERUM 0.6 mg/dL (0.6-1.3); GLUCOSE 115 mg/dL (74-106); POTASSIUM - SERUM 3.3 mmol/L (3.5-5.1); PROTEIN - SERUM 6.5 g/dL (6.4-8.2); SODIUM 139 mmol/L (136-145); eGFR NON AFRICAN AMERICAN > 90 mL/min (90-120)
[2019-02-06 06:13] LABS: UREA NITROGEN 3 mg/dL (7-18)
--- NOTE | 2019-02-06 07:10 | NUR ---
REPORT RECEIVED FROM CDL FLATBED TRUCK DRIVER. PATIENT SITTING UP IN BED AWAKE, ALERT ORIENTED X 4. PATIENT IS STABLE AND VSS. PATIENT DENIES ANY NEEDS OR PAIN. WILL CONTINUE WITH PLAN OF CARE.
[2019-02-06 09:23] VITALS: BP 173/105
--- NOTE | 2019-02-06 10:29 | NUR ---
PATIENT IS STABLE AND VSS. OBTAINED SIGNED CONSENT FOR LEFT HEART CATH AND BLOOD. PREOP PER MAR ORDERS . PATIENT TO STONE SETTER METAL OPTICAL FRAMES VIA HOSPITAL BED AND STONE SETTER METAL OPTICAL FRAMES TEAM.
[2019-02-06 12:21] VITALS: Ht 152.4 cm; Wt 81.5 kg
[2019-02-06 13:01] VITALS: BP 118/80
--- NOTE | 2019-02-06 19:39 | NUR ---
PT WITH EYES OPEN WATCHING TV. NO S/S OF DISTRESS. COMPLAINS OF PAIN 5/10 GENERALIZED. REQUEST PAIN MEDICATION WITH OTHER MEDICATIONS. NO OTHER NEEDS OR CONCERNS MADE KNOWN. CALL LIGHT IN REACH. WILL CONTINUE TO OBSERVE.
[2019-02-06 20:30] VITALS: BP 150/94
--- NOTE | 2019-02-06 23:44 | NUR ---
PM MEDICATIONS GIVEN PER MAR WITH PRM NORCO. TOLERATED WELL. SLEEPING AT THIS TIME. FRIEND AT BEDSIDE. CALL LIGHT IN REACH. WILL CONTINUE TO OBSERVE.
[2019-02-07 00:32] VITALS: BP 152/82
[2019-02-07 04:39] VITALS: BP 152/93
[2019-02-07 05:58] LABS: BASOPHILS 0.1 % (0-2); EOSINOPHILS 4.2 % (0-7); HEMATOCRIT 38.4 % (36.0-48.0); HEMOGLOBIN 12.8 g/dL (12-16); IMMATURE GRANULOCYTES 0.2 % (0-5); MCH 33.7 pg (26.0-34.0); MCHC 33.3 g/dL (31.0-37.0); MCV 101.1 fL (80.0-100.0); MEAN PLATELET VOLUME 8.8 fL (7.4-10.4); MONOCYTES 6.5 % (2-11); PLATELET COUNT 429 10x3/uL (130-400); RDW 15.9 % (11.5-14.5); WBC 8.3 10x3/uL (4.8-10.8)
[2019-02-07 06:25] LABS: CALCIUM 8.4 mg/dL (8.5-10.1); CARBON DIOXIDE 23.5 mmol/L (21.0-32.0); CHLORIDE - SERUM 101 mmol/L (98-107); CREATININE - SERUM 0.6 mg/dL (0.6-1.3); GLUCOSE 115 mg/dL (74-106); SODIUM 136 mmol/L (136-145); THYROID STIMULATING HORMONE 2.42 uIU/mL (0.36-3.74); eGFR NON AFRICAN AMERICAN > 90 mL/min (90-120)
[2019-02-07 06:26] LABS: CALC OSMOLALITY 269 mosm/kg (275-300); POTASSIUM - SERUM 3.9 mmol/L (3.5-5.1); UREA NITROGEN 4 mg/dL (7-18)
--- NOTE | 2019-02-07 08:30 | NUR ---
PT RESTING IN BED. SHIFT ASSESSMENT PERFORMED. DENIES ANY NEEDS AT THIS TIME, DENIES ANY WANTS AT THIS TIME. WILL CONT TO FOLLOW PLAN OF CARE
[2019-02-07 09:37] VITALS: BP 170/94
[2019-02-07 12:27] VITALS: BP 142/89
--- NOTE | 2019-02-07 17:36 | NUR ---
PT RESTING IN BED. FRIEND AT BEDSIDE. DENIES ANY NEEDS AT THIS TIME, WILL CONT TO FOLLOW PLAN OF CARE
[2019-02-07 18:34] VITALS: BP 133/70
[2019-02-07 20:00] VITALS: BP 173/95
--- NOTE | 2019-02-07 20:10 | NUR ---
RECIEVED BEDSIDE REPORT. ROUNDS COMPLETED. AAOX4, VSS WITH SBP OF 176. LOPRESSOR GIVEN ALONGSIDE OTHER MEDS AT THIS TIME. FAMILY AT BEDSIDE. PT STATES SHE IS FEELING A LITTLE ANXIOUS AND SICK TO HER STOMACH. NO INTERVENTION AT THIS TIME MOMENT WILL CTM. PT DENIES ANY FUTHER NEEDS AT THIS TIME. CL IN REACH, BED IN LOW, SR UPX2.
--- NOTE | 2019-02-07 21:30 | NUR ---
PT HAD NO IV ON ASSESMENT. RESTARTED A NEW IV 22G ON LEFT WRIST. PT TOLERATE WELL. PT C/O PAIN 3/10 AND NAUSEA. SHE STATES THAT SHE HAS VOMITED TWICE. PRN 2MG MORPHINE AND 4MG/2L ZOFRAN GIVEN AT THIS TIME. WILL CTM. CL IN REACH, BED IN LOW, SR UP X2.
[2019-02-08] VITALS: BP 158/92
[2019-02-08 04:00] VITALS: BP 155/83
--- NOTE | 2019-02-08 05:16 | NUR ---
PT C/O NAUSEA AND HEADACHE. PO 2TAB 325MG OF TYLENOL AND ZOFRAN 4MG/2ML GIVEN AT THIS TIME. WILL CTM. CL IN REACH, BED IN LOW, FAMILY AT BEDSIDE.
[2019-02-08 08:12] VITALS: BP 142/74
--- NOTE | 2019-02-08 08:40 | NUR ---
AM ROUNDS COMPLETED. INTRODUCED MYSELF TO PT PRIMARY RN FOR TODAYS SHIFT. PT IS A&O SITTING UP IN BED RESTING QUIETLY. SHIFT ASSESSMENT COMPLETED. PT STATES SHE IS FEELING GOOD OVERALL BUT STILL C/O PAIN AND ANXIETY HOWEVER THIS IS CHRONIC. PT STATES SHE IS READY TO GO HOME AND DISCUSSED WITH YESTERDAY AND THINKS SHE WILL BE ABLE TO. PROVIDED PT WITH HER AM MEDICATIONS AND SHE SWALLOWED WITHOUT ANY DIFFICULTIES. WILL WAIT ON TO ROUND AND SEE ABOUT DISHCARGE PLANS. PT VOICED THANKS AND DENIES ANY FURTHER NEEDS AT THIS TIME. CL IN REACH, BED IN LOWEST, SIDE RAILS X2. WILL CTM.
[2019-02-08] MEDS ORDERED: CATAPRES0.2 MG PO (09:48)
[2019-02-08 12:31] VITALS: BP 159/83
--- NOTE | 2019-02-08 16:08 | NUR ---
DISCHARGE TEACHING PROVIDED AND PAPERS SIGNED. PT DENIES ANY QUESTIONS OR CONCERNS. ALL BELONGINGS COLLECTED AND PT IS GETTING DRESSED. D/C PTS PIV WITH CATHETER TIP FULLY INTACT. D/C TELEMETRY AND RETURNED TO [facility]. PT WAITING ON HER RIDE. NO CURRENT NEEDS. WILL CTM.
--- NOTE | 2019-02-11 09:04 | MORECARE ---
CASE MANAGEMENT DISCHARGE SUMMARY PATIENT: ADE GAUTAM UNIT: [id number] ADM DATE: 02/05/19 AGE: 58 : 62 SEX: F ROOM/BED: D.[facility] AUTHOR: KATLIN OLVERA PHYSICIAN: REFERRING PHYSICIAN: SHELTON CABALLERO MD DATE OF SERVICE: 02/11/19 Discharge Plan Patient Name: ADE GAUTAM Facility: [facility]:[place] : 1960 Planned Disposition: Home Anticipated Discharge Date: 02/08/19 Discharge Date: 02/08/2019 Expected LOS: 3 Initial Reviewer: [email or web address] Initial Review Date: 02/11/2019 Generated: 02/11/19 10:04 am Patient Name: ADE GAUTAM Page 87125 at 0904 All edits/amendments must be made on the electronic document DICTATION DATE: 02/11/19903 SHALLOT CLEANER: DM 02/11/19 09 RPT#: [id number] DC DATE:02/08/19 STATUS: DIS IN [facility] [address] [place] [address] END OF REPORT
== END 2019-02-08 16:25 | disposition home or self-care (01) ==
LOC: D.ER 12:26 → OBSVTIME 20:18 → D.EDHOLD 20:18 → D.M2 20:54
PROVIDERS: Family Medicine; ADMIT Family Medicine; ATTEND Family Medicine
DX: I10 Essential (primary) hypertension (principal); R00.0 Tachycardia, unspecified; R94.31 Abnormal electrocardiogram [ECG] [EKG]; R53.1 Weakness; Z91.14 Patient's other noncompliance with medication regimen; F31.30 Bipolar disorder, current episode depressed, mild or moderate severity, unspecified; F41.8 Other specified anxiety disorders; K21.9 Gastro-esophageal reflux disease without esophagitis; M54.5 Low back pain; G89.29 Other chronic pain; G62.9 Polyneuropathy, unspecified; L40.9 Psoriasis, unspecified; M79.7 Fibromyalgia

== ENCOUNTER 2019-12-03 13:36 | Inpatient (IN) | payer MEDICARE, MEDICAID ==
[2019-12-03] VITALS (12 sets, daily range): BP systolic 121–194; BP diastolic 65–118; BMI 31.3
[~2019-12-03] VITALS: Ht 157.5 cm; Wt 77.5 kg
--- NOTE | ~2019-12-03 | CN ---
PATIENT NAME:ADE GAUTAM MEDICAL RECORD: [id number] : 62 LOCATION:LAURYND.2316 ADMIT DATE: 12/03/19 ACCOUNT: [id number] CONSULTING PHYSICIAN: ISAÍAS ARCE MD REFERRING PHYSICIAN: JAYASHREE ESPINOSA MD DATE OF CONSULTATION: 12/04/2019 IDENTIFYING DATA: The patient is 59 years old and she is admitted to the hospital on a voluntary basis. CHIEF COMPLAINT: Nausea and vomiting. HISTORY OF PRESENT ILLNESS: The patient tells me that she has extreme anxiety and is "coming out of her skin." This is inconsistent with how she appears lying calmly in the bed, not moving and speaking to me in a slow and deliberate manner. She says that she is frustrated because she has a regular episodes of nausea and vomiting and apparently at this time, she also had what may be a seizure. The patient reports that she has to take her nerve and pain medicine, specifically Xanax and hydrocodone. When told that her urine drug screen was negative for both of these substances. She tells me that she has been out of them. She is asking me for Xanax. The symptoms that she is having are consistent with opiate withdrawal and indeed she has a dilated pupil. She, however, insist she has no addiction to these medications. She endorses depressive symptoms, but denies that she would hurt herself. She denies psychotic symptoms. ASSESSMENT: 1. Probable polysubstance abuse. 2. 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 3. 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 PLAN: At this time, it is my opinion that this patient's recurrent troubles with nausea and vomiting are related to opiate withdrawal. She denies that she has an addiction to these medications and when I explained to her how inappropriate it is to manage chronic pain with long-term opiate use, she is dismissive and indicates that she has to have them. I do not see any evidence of acute or direct dangerousness. I am going to give her an injection of Vistaril on a one-time basis. I would recommend starting her on an SSRI and referring her to outpatient substance abuse and mental health treatment. TRANSINT:[id number] Voice Confirmation ID: [id number] DOCUMENT ID: [id number] ISAÍAS ARCE MD CC: [id number] DICTATION DATE: 12/04/19 1112 CUSTOMER SERVICE ASSISTANT: 12/04/19 1207 ADM IN [facility] [address] [facility], [facility]
[~2019-12-03 13:36] MED LIST changes: +PHENYTEK300 MG PO
--- NOTE | 2019-12-03 13:57 | NUR ---
NASAL SWAB COLLECTED, LABELED AT BS AND SENT TO LAB
[2019-12-03 14:12] LABS: BASOPHILS 0.1 % (0-2); EOSINOPHILS 0.1 % (0-7); HEMATOCRIT 41.7 % (36.0-48.0); HEMOGLOBIN 15.7 g/dL (12-16); IMMATURE GRANULOCYTES 0.4 % (0-5); LYMPHOCYTES 11.8 % (15-50); MCH 33.5 pg (26.0-34.0); MCHC 37.6 g/dL (31.0-37.0); MCV 89.1 fL (80.0-100.0); MEAN PLATELET VOLUME 8.5 fL (7.4-10.4); MONOCYTES 5.2 % (2-11); NEUTROPHILS 82.4 % (40-80); PLATELET COUNT 486 10x3/uL (130-400); RBC 4.68 10x6/uL (4.00-5.40)
--- NOTE | 2019-12-03 14:15 | NUR ---
CALLED TO ROOM BY FRIEND. PT HAVING GRAND MAL SEIZURE ACTIVITY. AIRWAY SUCTIONED. IV STARTED AND O2 PLACED. SZ ACTIVIITY LASTED 1-2 MINUTES. PT POST ICTAL. VSS. DR HORNE AT BS. RT PAGED
[2019-12-03 14:28] LABS: ALBUMIN 3.7 g/dL (3.4-5.0); ALKALINE PHOSPHATASE 128 U/L (30-120); ALT (SGPT) 13 U/L (10-68); AMYLASE - SERUM 55 U/L (25-115); BILIRUBIN - TOTAL 0.46 mg/dL (0.2-1.3); CALCIUM 8.5 mg/dL (8.5-10.1); CARBON DIOXIDE 25.8 mmol/L (21.0-32.0); CREATININE - SERUM 0.7 mg/dL (0.6-1.3); GLUCOSE 151 mg/dL (74-106); LIPASE 92 U/L (73-393); PHENYTOIN (DILANTIN) 2.5 ug/mL (10.0-20.0); PROTEIN - SERUM 7.8 g/dL (6.4-8.2); UREA NITROGEN 5 mg/dL (7-18); eGFR NON AFRICAN AMERICAN > 90 mL/min (90-120)
--- NOTE | 2019-12-03 14:30 | NUR ---
ALERT, EYES OPEN. REMAINS POST ICTAL/NON VERBAL. RESP EVEN/UNLABORED.
[2019-12-03 14:46] LABS: CALC OSMOLALITY 230 mosm/kg (275-300); TROPONIN-I < 0.017 ng/mL (0.000-0.060)
[2019-12-03 14:49] LABS: CHLORIDE - SERUM 77 mmol/L (98-107); POTASSIUM - SERUM 2.9 mmol/L (3.5-5.1); SODIUM 114 mmol/L (136-145)
[2019-12-03 15:45] LABS: APPEARANCE CLEAR (CLEAR); BILIRUBIN NEGATIVE (NEGATIVE); COLOR YELLOW (YELLOW); GLUCOSE 500 mg/dL (NEGATIVE); KETONE MODERATE mg/dL (NEGATIVE); NITRITE NEGATIVE (NEGATIVE); PROTEIN TRACE mg/dL (NEGATIVE); SPECIFIC GRAVITY 1.015 (1.005-1.020); UROBILINOGEN NORMAL (NORMAL)
--- NOTE | 2019-12-03 16:08 | NUR ---
DR HORNE ORDERED OK TO STOP NS BOLUS WHILE HYPERTONIC SALINE INFUSING
--- NOTE | 2019-12-03 16:52 | NUR ---
TO CT VIA STRETCHER
--- NOTE | 2019-12-03 17:26 | NUR ---
RTND FROM CT. RESTING IN BED. SPEECH CLEAR. A/OX3. NAD NOTED. VSS
--- NOTE | 2019-12-03 17:45 | NUR ---
REPORT TO LOUIE TORRES
--- NOTE | 2019-12-03 17:50 | NUR ---
TRANSPORTED TO ICU ROOM #2316, CONDITION STABLE. 3% NS INFUSING VIA PUMP AT 200ML/HR. INFORMED LOUIE TORRES 75 ML LEFT TO INFUSE. VERB UNDER
--- NOTE | 2019-12-03 18:05 | NUR ---
PT ARRIVED TO UNIT AT THIS TIME VIA STRETCHER FROM ER. PT LETHARGIC BUT WAKES UP WHEN SPOKEN TO AND THEN GOES BACK TO SLEEP. PT SHIVERING STAING SHE IS COLD. TEMP 98.6; WARMED BLANKET PROVIDED. ALSO PT RECIEVING 3% SALINE BOLUS; WAS TO RECIEVE 200ML TOTAL; 75 ML LEFT TO INFUSE AT THIS TIME. PER DR ESPINOSA PT IS TO HAVE NO FLUIDS AND EVERYTHING GIVEN, IF CAN BE PO, NEEDS TO BE PO. ALSO STATED OKAY TO PLACE PT ON ELECTROLYTE PROTOCOL. WILL CONTINUE TO CLOSELY OBSERVE.
--- NOTE | 2019-12-03 18:10 | NUR ---
UNABLE TO PERFORM SRS, RECONCILE MED LIST, PT HISTORY, CONFIRM EMERGENCY CONTACT INFORMATION, OR CONFIRM PHARMACY, PT TOO SLEEPT. NOTED PT OPENS EYES WHEN I ASKED HER IF SHE COULD HEAR ME AND SHE NODDED HEAR HEAD STATING YES AND THEN WENT BACK TO SLEEP WITHOUT ANSWERING FURTHER QUESTIONS. WILL BE ABLE TO RECIEVE INFORMATION WHEN SHE IS MORE ALERT. VSS. NO ACUTE DISTRESS NOTED. WILL CONTINUE PLAN OF CARE.
--- NOTE | 2019-12-03 19:00 | NUR ---
Report received from off going nurse. Pt is laying in bed at this time unable to answer questions or follow commands. No needs noted at this time. No s/s of distress. Will continue to monitor. Admission assessment completed, see flowsheet for details.
[2019-12-03 20:58] LABS: INR 1.02 (0.85-1.17); PROTIME 13.3 SECONDS (11.6-15.0)
--- NOTE | 2019-12-03 21:00 | NUR ---
Received a phone call from patient's sister stating that she felt like someone needed to know some information about her sister that could effect her care needs. I was then informed that the patient's son committed suicide about 10 years ago and that she(the patient) has not been right since. According to the sister, the patient's boyfriend states that the patient got her medications refilled on Monday and that by Monday had taken all of them(approx 60 xanax and 30 hydrocodone). Sister stated that the patient is suicidal and that she has attempted suicide several times and OD'd on medications. She also stated that the patient is a pain medication seeker and will come to the ER complaining of a headache in an attempt to get pain medications. At this time I notified Dr Locke of what I was informed of and he suggested consulting psych. The boyfriend then came to visit the patient and he verified what the sister had said. Said that he is with the patient all the time because he is afriad that she will try to kill herself if he leaves her alone. The only time he leaves her alone he says is when he has to go pay bills or go grocery shopping, and he is terrified that she will try something while she is alone. He keeps her medications where he can monitor them, but that sometimes she will get into them when he is gone and take them. He stated that he has to keep his medications locked up or she will take them as well as hers. Patient's boyfriend is concerned about her doing something to herself and blame being put on him for her actions. At this time, pt is still laying in bed with eyes closed. Pt was able to wake up and answer some questions regarding her medications and medical history but fell asleep during answering them multiple times. No further needs noted at this time. Will continue to [facility].
[2019-12-03 21:02] LABS: CALCIUM 8.4 mg/dL (8.5-10.1); CARBON DIOXIDE 24.9 mmol/L (21.0-32.0); CHLORIDE - SERUM 86 mmol/L (98-107); SODIUM 124 mmol/L (136-145); UREA NITROGEN 6 mg/dL (7-18)
[2019-12-03 21:03] LABS: CALC OSMOLALITY 246 mosm/kg (275-300); CREATININE - SERUM 0.5 mg/dL (0.6-1.3); GLUCOSE 82 mg/dL (74-106); eGFR NON AFRICAN AMERICAN > 90 mL/min (90-120)
--- NOTE | 2019-12-03 23:00 | NUR ---
Reassessment completed, see flowsheet for details. Pt is laying in bed with eyes closed at this time. No needs noted. No s/s of distress. Will continue to monitor.
[2019-12-04] VITALS (15 sets, daily range): BP systolic 95–147; BP diastolic 61–89; Ht 157.5 cm; Wt 77.5 kg
--- NOTE | 2019-12-04 01:00 | NUR ---
Pt is laying in bed with eyes closed. No s/s of distress. Will continue to monitor.
[2019-12-04 01:39] LABS: CALC OSMOLALITY 249 mosm/kg (275-300); CARBON DIOXIDE 24.7 mmol/L (21.0-32.0); CHLORIDE - SERUM 89 mmol/L (98-107); CREATININE - SERUM 0.6 mg/dL (0.6-1.3); GLUCOSE 94 mg/dL (74-106); SODIUM 126 mmol/L (136-145); UREA NITROGEN 5 mg/dL (7-18); eGFR NON AFRICAN AMERICAN > 90 mL/min (90-120)
--- NOTE | 2019-12-04 01:48 | NUR ---
ATTEMPTED TO PERFORM SUICIDE RISK ASSESSMENT. COULD NOT STAY AWAKE TO ANSWER QUESTIONS. WOULD HAVE TO AWAKEN PATIENT REPEATEDLY AND SHE WOULD SHAKE HER HEAD AND GO BACK TO SLEEP. WILL ASSESS PATIENT WHEN IS MORE AWAKE. PATIENT DID RELATE SHE HAS NOT HAD SI FOR SEVEN YEARS. WHEN ATTEMPTED TO PROCEED WITH ASSESMENT SHE COULD NOT STAY ALERT TO ANSWER QUESTIONS.
[2019-12-04 01:56] LABS: UDS - AMPHET NEGATIVE QUAL (NEGATIVE); UDS - BARB NEGATIVE QUAL (NEGATIVE); UDS - BENZO NEGATIVE QUAL (NEGATIVE); UDS - COCAINE NEGATIVE QUAL (NEGATIVE); UDS - OPIATE NEGATIVE QUAL (NEGATIVE); UDS - PCP NEGATIVE QUAL (NEGATIVE); UDS - THC NEGATIVE QUAL (NEGATIVE)
[2019-12-04 01:59] LABS: POTASSIUM - SERUM 2.8 mmol/L (3.5-5.1)
[2019-12-04 05:02] LABS: BASOPHILS 0 % (0-2); EOSINOPHILS 0.3 % (0-7); HEMATOCRIT 42.8 % (36.0-48.0); HEMOGLOBIN 15.5 g/dL (12-16); IMMATURE GRANULOCYTES 0.3 % (0-5); LYMPHOCYTES 14.4 % (15-50); MCHC 36.2 g/dL (31.0-37.0); MEAN PLATELET VOLUME 8.8 fL (7.4-10.4); MONOCYTES 8.1 % (2-11); NEUTROPHILS 76.9 % (40-80); PLATELET COUNT 425 10x3/uL (130-400); RBC 4.69 10x6/uL (4.00-5.40); RDW 14.4 % (11.5-14.5)
[2019-12-04 05:11] LABS: MCV 91.3 fL (80.0-100.0); WBC 10.4 10x3/uL (4.8-10.8)
[2019-12-04 05:49] LABS: ALBUMIN 3.6 g/dL (3.4-5.0); ALKALINE PHOSPHATASE 120 U/L (30-120); ALT (SGPT) 12 U/L (10-68); BILIRUBIN - TOTAL 0.27 mg/dL (0.2-1.3); CALC OSMOLALITY 256 mosm/kg (275-300); CALCIUM 8.7 mg/dL (8.5-10.1); CARBON DIOXIDE 26.5 mmol/L (21.0-32.0); CHLORIDE - SERUM 91 mmol/L (98-107); CKMB 3.2 U/L (0.0-3.6); CREATINE KINASE 231 UL (21-215); CREATININE - SERUM 0.6 mg/dL (0.6-1.3); GLUCOSE 91 mg/dL (74-106); PHOSPHOROUS 2.9 mg/dL (2.5-4.9); PROTEIN - SERUM 7.1 g/dL (6.4-8.2); SODIUM 129 mmol/L (136-145); UREA NITROGEN 6 mg/dL (7-18); eGFR NON AFRICAN AMERICAN > 90 mL/min (90-120)
[2019-12-04 05:58] LABS: MAGNESIUM - SERUM 2.2 mg/dL (1.8-2.4); PHENYTOIN (DILANTIN) 0.5 ug/mL (10.0-20.0); POTASSIUM - SERUM 3.3 mmol/L (3.5-5.1)
[2019-12-04 06:00] LABS: TROPONIN-I 0.091 ng/mL (0.000-0.060)
--- NOTE | 2019-12-04 07:00 | NUR ---
REPORT RECEVIED FROM THE OFF GOING RN. SEE ASSESSMENT IN THE PTS FLOW SHEET. PT A&O X4 BUT VERY QUIET AND RESERVED. PT STATES THAT SHE HAS A HX OF SI BUT PT DENIES TRYING TO COMIT SUICIDE RECENTLY. PT VSS. CALL LIGHT IN REACH. WILL CONT POC.
[2019-12-04 08:27] LABS: CALC OSMOLALITY 256 mosm/kg (275-300); CALCIUM 8.5 mg/dL (8.5-10.1); CARBON DIOXIDE 24.7 mmol/L (21.0-32.0); CHLORIDE - SERUM 93 mmol/L (98-107); CREATININE - SERUM 0.6 mg/dL (0.6-1.3); GLUCOSE 84 mg/dL (74-106); POTASSIUM - SERUM 3.4 mmol/L (3.5-5.1); SODIUM 130 mmol/L (136-145); UREA NITROGEN 5 mg/dL (7-18); eGFR NON AFRICAN AMERICAN > 90 mL/min (90-120)
--- NOTE | 2019-12-04 09:46 | NUR ---
PT VSS. PT RESTING WITH HER EYES CLOSED WITH NO S/SX OF DISTRESS/DISCOMFORT NOTED. CALL LIGHT IN REACH. WILL CONT POC.
[2019-12-04 12:16] LABS: CALC OSMOLALITY 261 mosm/kg (275-300); CALCIUM 8.4 mg/dL (8.5-10.1); CARBON DIOXIDE 25.6 mmol/L (21.0-32.0); CHLORIDE - SERUM 96 mmol/L (98-107); CREATININE - SERUM 0.6 mg/dL (0.6-1.3); GLUCOSE 80 mg/dL (74-106); SODIUM 132 mmol/L (136-145); UREA NITROGEN 6 mg/dL (7-18); eGFR NON AFRICAN AMERICAN > 90 mL/min (90-120)
--- NOTE | 2019-12-04 12:33 | NUR ---
DR ESPINOSA ROUNDED. OK TO TRANSFER TO THE FLOOR.
--- NOTE | 2019-12-04 12:52 | NUR ---
K TREATED PER ELECTROLYTE PROTOCOL
[2019-12-04 16:25] LABS: CALC OSMOLALITY 260 mosm/kg (275-300); CALCIUM 7.7 mg/dL (8.5-10.1); CARBON DIOXIDE 23.4 mmol/L (21.0-32.0); CHLORIDE - SERUM 98 mmol/L (98-107); CREATININE - SERUM 0.6 mg/dL (0.6-1.3); GLUCOSE 117 mg/dL (74-106); POTASSIUM - SERUM 3.2 mmol/L (3.5-5.1); SODIUM 131 mmol/L (136-145); UREA NITROGEN 5 mg/dL (7-18); eGFR NON AFRICAN AMERICAN > 90 mL/min (90-120)
--- NOTE | 2019-12-04 16:30 | NUR ---
K REPLACED PER ELECTROLYTE PROTOCHOL.
--- NOTE | 2019-12-04 20:00 | NUR ---
PT RESTING IN BED. EYES CLOSED. NO SIGNS OF DISTRESS. BREATHING EVEN AND UNLABORED. IV SITE RT AC DRESSING CLEAN DRY AND INTACT. NO SIGNS OF INFECTION OR INFULTRATION. BOWEL SOUNDS ACTIVE. LUNG SOUNDS CLEAR. HAMILTON IN PLACE. CLEAN DRY AND INTACT. WILL CONTINUE PLAN OF CARE. CALL LIGHT IN REACH. BED LOWERED AND EUGENIO. BED RAILS UPX2.
[2019-12-04 20:05] LABS: CALC OSMOLALITY 263 mosm/kg (275-300); CALCIUM 7.3 mg/dL (8.5-10.1); CARBON DIOXIDE 21.5 mmol/L (21.0-32.0); CHLORIDE - SERUM 100 mmol/L (98-107); CREATININE - SERUM 0.7 mg/dL (0.6-1.3); GLUCOSE 99 mg/dL (74-106); POTASSIUM - SERUM 3.6 mmol/L (3.5-5.1); SODIUM 133 mmol/L (136-145); eGFR NON AFRICAN AMERICAN > 90 mL/min (90-120)
[2019-12-04 20:07] LABS: UREA NITROGEN 8 mg/dL (7-18)
--- NOTE | 2019-12-04 22:00 | NUR ---
PT RESTING IN BED. NO SIGNS OF DISTRESS. BREATHING EVEN AND UNLABORED. WILL CONTINUE PLAN OF CARE. CALL LIGHT IN REACH.
--- NOTE | 2019-12-05 | NUR ---
PT RESTING IN BED. EYES OPEN. ALERT AND ORIENTED. PT STATES NO NEEDS AT THIS TIME. WILL CONTINUE PLAN OF CARE. CALL LIGHT IN REACH.
--- NOTE | 2019-12-05 02:07 | NUR ---
PT RESTING IN BED. EYES CLOSED. NO SIGNS OF DISTRESS. BREATHING EVEN AND UNLABORED. WILL CONITNUE PLAN OF CARE. CALL LIGHT IN REACH.
[2019-12-05 03:00] VITALS: BP 159/105
--- NOTE | 2019-12-05 04:00 | NUR ---
PT RESTING IN BED. EYES CLOSED. NO SIGNS OF DISTRESS. BREATHING EVEN AND UNLABORED. WILL CONITNUE PLAN OF CARE. CALL LIGHT IN REACH.
[2019-12-05 04:10] VITALS: BP 149/99
[2019-12-05 05:37] LABS: BASOPHILS 0.1 % (0-2); EOSINOPHILS 0.7 % (0-7); HEMATOCRIT 37.6 % (36.0-48.0); HEMOGLOBIN 12.9 g/dL (12-16); IMMATURE GRANULOCYTES 0.3 % (0-5); LYMPHOCYTES 18.6 % (15-50); MCH 32.4 pg (26.0-34.0); MCHC 34.3 g/dL (31.0-37.0); MEAN PLATELET VOLUME 9.1 fL (7.4-10.4); MONOCYTES 8.6 % (2-11); NEUTROPHILS 71.7 % (40-80); PLATELET COUNT 380 10x3/uL (130-400); RBC 3.98 10x6/uL (4.00-5.40); RDW 15.1 % (11.5-14.5); WBC 9.4 10x3/uL (4.8-10.8)
[2019-12-05 05:59] LABS: ALKALINE PHOSPHATASE 93 U/L (30-120); ALT (SGPT) 12 U/L (10-68); BILIRUBIN - TOTAL 0.21 mg/dL (0.2-1.3); CALCIUM 7.8 mg/dL (8.5-10.1); CARBON DIOXIDE 23.3 mmol/L (21.0-32.0); CHLORIDE - SERUM 98 mmol/L (98-107); GLUCOSE 90 mg/dL (74-106); MAGNESIUM - SERUM 1.8 mg/dL (1.8-2.4); POTASSIUM - SERUM 3.4 mmol/L (3.5-5.1); PROTEIN - SERUM 6.4 g/dL (6.4-8.2); SODIUM 133 mmol/L (136-145)
[2019-12-05 06:04] LABS: MCV 94.5 fL (80.0-100.0)
[2019-12-05 06:08] LABS: PHOSPHOROUS 1.8 mg/dL (2.5-4.9); UREA NITROGEN 5 mg/dL (7-18)
[2019-12-05 06:09] LABS: CALC OSMOLALITY 262 mosm/kg (275-300); CREATININE - SERUM 0.5 mg/dL (0.6-1.3); eGFR NON AFRICAN AMERICAN > 90 mL/min (90-120)
[2019-12-05 07:00] VITALS: BP 169/94
--- NOTE | 2019-12-05 10:50 | NUR ---
REPORT REC'D BEDSIDE REPORT FROM ADÁN, CARE CONTINUED, PATIENT AAO, VSS, DENIES PAIN, O2 VIA RA, RIGHT AC PIV WITH NS INFUSING, OOB TO BEDSIDE COMMODE, TOLERATED TRANSFER WITHOUT DIFFICULTY, CALL LIGHT IN REACH, NO OTHER NEEDS AT THIS TIME
[2019-12-05 11:00] VITALS: BP 169/94
--- NOTE | 2019-12-05 11:12 | NUR ---
OOB TO BSC, LARGE MUCOUS LIKE BM TO HAYES, INDEPENDENT WITH SKIN CARE, TO CHAIR FOR SET UP FOR BATH, INDEPENDENT WITH CARE, LINEN CHANGE COMPLETED
[2019-12-05] MEDS ORDERED: ZOLOFT50 MG PO (12:04)
[2019-12-05] MEDS ORDERED: THERMOTABS 1 GM1 GM PO (12:05)
--- NOTE | 2019-12-05 12:30 | NUR ---
LUNCH TRAY TO CHAIRSIDE, INDEPENDENT WITH SET UP AND EATING
--- NOTE | 2019-12-05 14:00 | NUR ---
BTB TIRED OF SITTING UP, VSS, DENIES PAIN OR NEEDS AT THIS TIME, WORKING ON DISCHARGE, PC TO ETHEL, SIGNIFICANT OTHER, STATES HE WILL COME TO PICK PATIENT UP, RIGHT AC PIV DC'D WITH CATHETER INTACT, GAUZE DRESSING APPLIED
--- NOTE | 2019-12-05 14:38 | MORECARE ---
CASE MANAGEMENT DISCHARGE SUMMARY PATIENT: ADE GAUTAM UNIT: [id number] ADM DATE: 12/03/19 AGE: 59 : 62 SEX: F ROOM/BED: D.2316 AUTHOR: KATLIN OLVERA PHYSICIAN: REFERRING PHYSICIAN: JAYASHREE ESPINOSA MD DATE OF SERVICE: 12/05/19 Discharge Plan Patient Name: ADE GAUTAM Facility: [facility]:[place] : 1960 Planned Disposition: Home Anticipated Discharge Date: Discharge Date: Expected LOS: Initial Reviewer: [email or web address] Initial Review Date: 12/05/2019 Generated: 12/05/19 3:37 pm DCPIA - Discharge Planning Initial Assessment Updated by [email or web address]: Ruth Warner on 12/05/19 2:37 pm * Is the patient Alert and Oriented? Yes * How many steps to enter\exit or inside your home? * PCP RAMEY * Pharmacy [facility] * Preadmission Environment Home with Family * ADLs Independent * Equipment None * List name and contact numbers for known caregivers / representatives who currently or will assist patient after discharge: ETHEL GARCIA [facility] - [phone] * Verbal permission to speak to the caregivers and representatives has been obtained from the patient. Yes * Community resources currently utilized Home Health * Please name any agencies selected above. UNKNOWN PROVIDER * Additional services required to return to the preadmission environment? No * Can the patient safely return to the preadmission environment? Yes * Has this patient been hospitalized within the prior 30 days at any hospital? No Patient Name: ADE GAUTAM Page [id number] at 1438 All edits/amendments must be made on the electronic document DICTATION DATE: 12/05/19 1437 MANAGER INVESTMENT: RICARDO 12/05/19 1437 RPT#: [id number] DC DATE: STATUS: ADM IN [facility] [address] [place] [address] END OF REPORT
--- NOTE | 2019-12-05 14:46 | MORECARE ---
CASE MANAGEMENT DISCHARGE SUMMARY PATIENT: ADE GAUTAM UNIT: [id number] ADM DATE: 12/03/19 AGE: 59 : 62 SEX: F ROOM/BED: D.2316 AUTHOR: WADE,DOC PHYSICIAN: REFERRING PHYSICIAN: JAYASHREE ESPINOSA MD DATE OF SERVICE: 12/05/19 Discharge Plan Patient Name: ADE GAUTAM Facility: [facility]:[place] : 1960 Planned Disposition: Home Anticipated Discharge Date: Discharge Date: Expected LOS: Initial Reviewer: [email or web address] Initial Review Date: 12/05/2019 Generated: 12/05/19 3:45 pm Comments DCP- Discharge Planning Updated by [email or web address]: Ruth Warner on 12/05/19 1:[address] Patient Name: ADE GAUTAM Admission Status: ER Accout number: [id number] Admission Date: 12-03-2019 : 1960 Admission Diagnosis: Attending: JAYASHREE ESPINOSA Current LOS: 2 Anticipated DC Date: Planned Disposition: Home Primary Insurance: MEDICARE A & B Discharge Planning Comments: CM met with patient to complete initial dc planning assessment. CM educated patient on the CM role and verbal consent given by patient to complete assessment. Patient lives at home with her friend where she is independent with her care. At discharge patient plans to return home and feels this is a safe discharge. CM discussed availability of home health, rehab services, and medical equipment. Patient states that her insurance [employer] was suppose to have home health starting in her home on Monday but she was in the hospital. Patient states that she will let them know when she is discharged so they can come out for visit. CM explained that Dr. Soliz had recommended that she get drug and mental rehab / counseling as an outpatient. CM gave patient a pamphlet on [facility] and there walk in clinics and times. Patient denied known discharge needs at this time. CM will continue to follow and will assist as needed with dc plans/needs. Cnc Mill Operator: Ruth Warner DCPIA - Discharge Planning Initial Assessment Updated by [email or web address]: Ruth Warner on 12/05/19 2:37 pm * Is the patient Alert and Oriented? Yes * How many steps to enter\exit or inside your home? * PCP RAMEY * Pharmacy [facility] * Preadmission Environment Home with Family * ADLs Independent * Equipment None * List name and contact numbers for known caregivers / representatives who currently or will assist patient after discharge: ETHEL GARCIA - [facility] - [phone] * Verbal permission to speak to the caregivers and representatives has been obtained from the patient. Yes * Community resources currently utilized Home Health * Please name any agencies selected above. UNKNOWN PROVIDER * Additional services required to return to the preadmission environment? No * Can the patient safely return to the preadmission environment? Yes * Has this patient been hospitalized within the prior 30 days at any hospital? No Last DP export: 12/05/19 1:38 p Patient Name: ADE GAUTAM Page 00096 at 1446 All edits/amendments must be made on the electronic document DICTATION DATE: 12/05/19 1446 SORTER PACKER: RICARDO 12/05/19 1446 RPT#: [id number] DC DATE: STATUS: ADM IN [facility] [address] [place] [address] END OF REPORT
--- NOTE | 2019-12-05 15:00 | NUR ---
DC'D HOME VIA WHEELCHAIR TO PERSONAL VEHICLE WITH SIGNIFICANT OTHER, AAO, NO NEEDS AT THIS TIME
--- NOTE | 2019-12-06 09:20 | MORECARE ---
CASE MANAGEMENT DISCHARGE SUMMARY PATIENT: ADE GAUTAM UNIT: [id number] ADM DATE: 12/03/19 AGE: 59 : 62 SEX: F ROOM/BED: D.2316 AUTHOR: WADE,DOC PHYSICIAN: REFERRING PHYSICIAN: JAYASHREE ESPINOSA MD DATE OF SERVICE: 12/06/19 Discharge Plan Patient Name: ADE GAUTAM Facility: [facility]:[place] : 1960 Planned Disposition: Home Anticipated Discharge Date: Discharge Date: 12/05/2019 Expected LOS: Initial Reviewer: [email or web address] Initial Review Date: 12/05/2019 Generated: 12/06/19 10:19 am Comments DCP- Discharge Planning Updated by [email or web address]: Ruth Warner on 12/05/19 1:[address] Patient Name: ADE GAUTAM Admission Status: ER Accout number: [id number] Admission Date: 12-03-2019 : 1960 Admission Diagnosis: Attending: JAYASHREE ESPINOSA Current LOS: 2 Anticipated DC Date: Planned Disposition: Home Primary Insurance: MEDICARE A & B Discharge Planning Comments: CM met with patient to complete initial dc planning assessment. CM educated patient on the CM role and verbal consent given by patient to complete assessment. Patient lives at home with her friend where she is independent with her care. At discharge patient plans to return home and feels this is a safe discharge. CM discussed availability of home health, rehab services, and medical equipment. Patient states that her insurance [employer] was suppose to have home health starting in her home on Monday but she was in the hospital. Patient states that she will let them know when she is discharged so they can come out for visit. CM explained that Dr. Soliz had recommended that she get drug and mental rehab / counseling as an outpatient. CM gave patient a pamphlet on [facility] and there walk in clinics and times. Patient denied known discharge needs at this time. CM will continue to follow and will assist as needed with dc plans/needs. Tractor Trailer Truck Driver: Ruth Warner DCPIA - Discharge Planning Initial Assessment Updated by [email or web address]: Ruth Warner on 12/05/19 2:37 pm * Is the patient Alert and Oriented? Yes * How many steps to enter\exit or inside your home? * PCP KAROLINE * Pharmacy [facility] * Preadmission Environment Home with Family * ADLs Independent * Equipment None * List name and contact numbers for known caregivers / representatives who currently or will assist patient after discharge: ETHEL GARCIA - [place] - [phone] * Verbal permission to speak to the caregivers and representatives has been obtained from the patient. Yes * Community resources currently utilized Home Health * Please name any agencies selected above. UNKNOWN PROVIDER * Additional services required to return to the preadmission environment? No * Can the patient safely return to the preadmission environment? Yes * Has this patient been hospitalized within the prior 30 days at any hospital? No Last DP export: 12/05/19 1:46 p Patient Name: ADE GAUTAM Page 45958 at 0920 All edits/amendments must be made on the electronic document DICTATION DATE: 12/06/19918 HEAD BELLHOP CAPTAIN: RICARDO 12/06/19918 RPT#: [id number] DC DATE:12/05/19 STATUS: DIS IN [facility] [address] [place] [address] END OF REPORT
== END 2019-12-05 17:34 | disposition home or self-care (01) | DRG 100 ==
LOC: D.ER 13:36 → D.ICU 16:31
PROVIDERS: Family Medicine; ADMIT Internal Medicine Nephrology; ATTEND Internal Medicine Nephrology
DX: G40.909 Epilepsy, unspecified, not intractable, without status epilepticus (principal); G93.41 Metabolic encephalopathy; E87.1 Hypo-osmolality and hyponatremia; E87.6 Hypokalemia; D72.829 Elevated white blood cell count, unspecified; E83.42 Hypomagnesemia; K21.9 Gastro-esophageal reflux disease without esophagitis; F41.8 Other specified anxiety disorders; M79.7 Fibromyalgia; G89.29 Other chronic pain; Z76.5 Malingerer [conscious simulation]